=== PATIENT | female | born 1995 | race Caucasian/White ===

== ENCOUNTER 2020-10-07 10:16 | Emergency (ER) | payer MEDICAID ==
[~2020-10-07] VITALS: Ht 154.9 cm; Wt 85.0 kg
[2020-10-07 10:35] VITALS: BP 124/95; Ht 154.9 cm; Wt 85.0 kg
[2020-10-07] MEDS ORDERED: PHENERGAN25 M1 PO (10:38)
[2020-10-07 11:00] LABS: BASOPHILS 0.2 % (0-2); EOSINOPHILS 1.4 % (0-7); HEMATOCRIT 38.3 % (36.0-48.0); HEMOGLOBIN 13.1 g/dL (12-16); LYMPHOCYTE ABS# 1.57 10x3/uL (1.18-3.74); MCHC 34.2 g/dL (31.0-37.0); MCV 87.6 fL (80.0-100.0); MEAN PLATELET VOLUME 11.2 fL (7.4-10.4); MONOCYTES 4.9 % (2-11); NEUTROPHIL ABS# 10.55 10x3/uL (1.56-6.13); NEUTROPHILS 80.5 % (40-80); PLATELET COUNT 246 10x3/uL (130-400); RBC 4.37 10x6/uL (4.00-5.40); RDW 13.3 % (11.5-14.5); WBC 13.1 10x3/uL (4.8-10.8)
[2020-10-07] MEDS ORDERED: REGLAN10 MG PO (11:00)
[2020-10-07] MEDS ORDERED: ZOFRAN ODT4 MG/UDTAB PO (11:00)
[2020-10-07 11:05] LABS: CALC OSMOLALITY 271 mosm/kg (275-300); CALCIUM 9.9 mg/dL (8.5-10.1); CARBON DIOXIDE 20.1 mmol/L (21.0-32.0); CHLORIDE - SERUM 102 mmol/L (98-107); CREATININE - SERUM 0.5 mg/dL (0.6-1.3); GLUCOSE 97 mg/dL (74-106); POTASSIUM - SERUM 3.7 mmol/L (3.5-5.1); SODIUM 137 mmol/L (136-145); UREA NITROGEN 7 mg/dL (7-18); eGFR NON AFRICAN AMERICAN > 90 mL/min (90-120)
[2020-10-07 11:12] LABS: ALBUMIN 3.5 g/dL (3.4-5.0); ALKALINE PHOSPHATASE 59 U/L (30-120); ALT (SGPT) 17 U/L (10-68); BILIRUBIN - TOTAL 0.34 mg/dL (0.2-1.3); PROTEIN - SERUM 7.5 g/dL (6.4-8.2)
[2020-10-07 11:44] LABS: BILIRUBIN NEGATIVE (NEGATIVE); KETONE MODERATE mg/dL (NEGATIVE); NITRITE NEGATIVE (NEGATIVE)
[2020-10-07 11:45] LABS: BACTERIA MODERATE HPF (NONE SEEN); WHITE CELLS - URINE OCC HPF (0-4)
== END 2020-10-07 12:03 | disposition home or self-care (01) ==
LOC: D.ER 10:16
PROVIDERS: Emergency Medicine
DX: O21.0 Mild hyperemesis gravidarum (principal); Z3A.17 17 weeks gestation of pregnancy